=== PATIENT | female | born 1945 ===

== ENCOUNTER 2018-08-17 12:45 | Inpatient (IN) | payer OTHER ==
[~2018-08-17] VITALS: Ht 157.5 cm; Wt 45.4 kg
[2018-08-17] MEDS ORDERED: SYNTHROID125 MCG PO (14:42)
[2018-08-17] MEDS ORDERED: FORTAMET500 MG PO (14:42)
== END 2018-08-20 13:00 | disposition home or self-care (01) | DRG 735 ==
LOC: EDSTATUS 12:45 → RECOVERY 12:45 → O/R 08-20 05:36 → CIR.AMB 08-20 06:00 → O/R 08-20 13:00
PROVIDERS: ADMIT Obstetrics & Gynecology Gynecologic Oncology
PROC: 07TC4ZZ Resection of Pelvis Lymphatic, Percutaneous Endoscopic Approach (ICD-10-PCS; 2018-08-20)
PROC: 0UT04ZZ Resection of Right Ovary, Percutaneous Endoscopic Approach (ICD-10-PCS; 2018-08-20)
PROC: 0UT54ZZ Resection of Right Fallopian Tube, Percutaneous Endoscopic Approach (ICD-10-PCS; 2018-08-20)
PROC: 0UT94ZZ Resection of Uterus, Percutaneous Endoscopic Approach (ICD-10-PCS; principal; 2018-08-20 22:15)
DX: C56.1 Malignant neoplasm of right ovary (principal)